=== PATIENT | female | born 1980 | race Caucasian/White ===

== ENCOUNTER 2016-08-28 11:40 | Emergency (ER) | payer BC ==
[~2016-08-28] VITALS: Ht 162.6 cm; Wt 81.8 kg
[2016-08-28] MEDS ORDERED: CLARITIN 1010 MG/TAB PO (11:47)
[2016-08-28] MEDS ORDERED: ILOTYCIN5 MG/GM OP (13:50)
[2016-08-28] MEDS ORDERED: NORCO 325 MG-51 TAB PO (13:50)
[2016-08-28 14:03] VITALS: BP 140/80; PULSE 95; TEMP 97.9
== END 2016-08-28 14:03 | disposition home or self-care (01) ==
LOC: COL.ER 11:40
DX: S05.11XA Contusion of eyeball and orbital tissues, right eye, initial encounter (principal); S05.01XA Injury of conjunctiva and corneal abrasion without foreign body, right eye, initial encounter; W21.03XA Struck by baseball, initial encounter; Y92.320 Baseball field as the place of occurrence of the external cause